=== PATIENT | male | born 1965 | race African-American/Black ===

== ENCOUNTER 2023-02-28 15:02 | Emergency (ER) | payer OTHER ==
[~2023-02-28] VITALS: Ht 172.7 cm; Wt 90.7 kg
[2023-02-28] MEDS ORDERED: DIPH,PERTUSS(ACELL),TET VAC/PF 0.5 ML VIAL IM ONE (16:00)
[2023-02-28] MEDS ORDERED: LIDOCAINE HCL 1% 20 ML VIAL ONE (17:24)
[2023-02-28] MEDS ORDERED: LIDOCAINE HCL 1% 20 ML VIAL INJ SCH (17:30)
[2023-02-28] MEDS ORDERED: CEFAZOLIN SODIUM 1 GM VIAL IM ONE (17:30)
[2023-02-28] MEDS ORDERED: CEPH500B PO (17:49)
[2023-02-28 17:56] VITALS: BP 133/78; PULSE 78; RESP 18; O2SAT 98
== END 2023-02-28 18:04 | disposition home or self-care (01) ==
LOC: EDH 15:02
DX: S66.921A Laceration of unspecified muscle, fascia and tendon at wrist and hand level, right hand, initial encounter (principal); E11.9 Type 2 diabetes mellitus without complications; I10 Essential (primary) hypertension; W26.9XXA Contact with unspecified sharp object(s), initial encounter; Y93.89 Activity, other specified; Y92.89 Other specified places as the place of occurrence of the external cause; Y99.8 Other external cause status
CPT/HCPCS: 99284; 90715; 73100; 96372; 90471; 12001; J0690